=== PATIENT | female | born 1995 | race Caucasian/White ===

== ENCOUNTER 2021-01-15 10:11 | Emergency (ER) | payer BC, SELFPAY ==
--- NOTE | ~2021-01-15 | XR_ITS ---
EXAMINATION: RIGHT WRIST X-RAY CLINICAL INFORMATION: Pain. Question fracture. COMPARISON: None TECHNIQUE: 4 views of the right wrist FINDINGS: Bone alignment is normal. No fracture or dislocation is seen. The joint spaces are normal. Soft tissues are normal. XR/XR hand wrist RT IMPRESSION: Normal right wrist.
[2021-01-15 10:54] VITALS: BP 132/68; PULSE 68; RESP 18; TEMP 37.1; O2SAT 99; BMI 30.9
--- NOTE | 2021-01-15 11:28 | ED_ITS ---
HPI - General Adult General Chief complaint: Extremity Problem Stated complaint: r wrist pain Time Seen by Provider: 01/15/21 11:05 Source: patient Mode of arrival: ambulatory Limitations: no limitations History of Present Illness HPI narrative: Patient presents to ED for right wrist pain for 1 week. Patient denies any trauma to the wrist. Patient denies any swelling, redness, tingling, numbness, bluish black discoloration, fever, or chills. 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 Patient denies being on any control pills. Patient denies any recent long travel, recent surgery, or any history of blood clots. Related Data Previous Rx's Medication Instructions Recorded naproxen 500 mg tablet 500 mg PO BID PRN #20 tab 01/15/21 Allergies Allergy/AdvReac Type Severity Reaction Status Date / Time No Known Allergies Allergy Verified 01/15/21 10:56 Review of Systems Review of Systems: Yes all other systems are reviewed and are negative Constitutional: Constitutional: Reports as per HPI and Reports no additional constitutional complaints Eyes: Eyes: Reports as per HPI and Reports no additional eye complaints ENT: Reports system reviewed and no additional complaints, except as documented and Reports as per HPI Cardiovascular: Cardiovascular: Reports as per HPI and Reports no additional cardiovascular complaints Respiratory: Respiratory: Reports as per HPI and Reports no additional respiratory complaints Gastrointestinal: Gastrointestinal: Reports as per HPI and Reports no additional gastrointestinal complaints Genitourinary: Genitourinary: Reports no additional female genitourinary complaints and Reports as per HPI Musculoskeletal: Musculoskeletal: Reports no additional musculoskeletal complaints, Reports as per HPI and Reports arthralgias (right wrist pain) Neurologic: Reports system reviewed and no additional complaints, except as documented and Reports as per HPI Psychiatric: Psychiatric: Reports no additional psychiatric complaints and Reports as per HPI [facility] Past Medical History Medical History (Updated 01/15/21 @ 12:52 by ZANDRA Ruano) No known health problems Social History Social History Advance Directives: No Advance Directives Information Provided: No Patient : No Physical Exam Vital Signs: Vital Signs: Last Vital Signs Temp 98.7 F 01/15/21 10:54 Pulse 68 01/15/21 10:54 Resp 18 01/15/21 10:54 BP 132/68 01/15/21 10:54 Pulse Ox 99 01/15/21 10:54 Body Mass Index 30.9 Const: General: cooperative, healthy appearing, comfortable, no acute distress, well developed, alert, awake and Physically active Sean entation/consciousness: patient oriented x3 HENMT: Head: Yes normal to inspection, Yes No palpable skull fracture present, Yes normocephalic, Yes atraumatic and No abrasion Eyes: General: appearance normal, both eyes and all related structures Neck: Neck: Yes normal visual inspection, Yes full ROM, Yes no lymphadenopathy, Yes no meningeal signs, Yes trachea midline, Yes supple and No tender Chest: Chest palpation & inspection: normal inspection of the chest and normal palpation of entire chest wall Resp: Effort & Inspection: normal respiratory effort and able to speak in complete sentences Auscultation: clear to auscultation bilaterally Cardio: Jugular venous distension: no JVD Heart sounds: S1 normal heart sound present and S2 normal heart sound present GI: Inspection: Yes normal to inspection and Yes abdominal wall ecchymosis Palpation (GI): Soft to palpation, not firm, nontender, no guarding and not rigid : General: No CVA tenderness and Yes no CVA tenderness Back/Spine/Pelvis: Back: no CVA tenderness, No CVA tenderness and No back tenderness Skin: General skin exam: no rashes or lesions noted and elasticity normal Neuro: General: patient oriented x3, gait normal, no meningeal signs and CN's II-XI intact bilaterally Cranial nerves: Yes CN's II-XII intact bilaterally Extrem: General: Yes normal to inspection and Yes full ROM Hand/finger images: 1. Tenderness on palpation. Negative for any erythema, deformity, ecchymosis, hardness, swellling, coolness. Negative Phalen and Tinel sign. Capillary refills intact. Motor/neuro/vascular exam intact. Extremity negative for any swelling, red streaks, redness, or palpable mass. Psych: Appearance: grossly normal, well kempt and not disheveled Course Course Course Narrative: Patient will be sent for x-ray. Patient not any distress. Reevaluation(s) Reevaluation #1: X-ray came back negative for fractures. Patient to be discharged. Time: 12:49 Medical Decision Making [place] Narrative Medical decision making narrative: Wrist pain Discharge Plan Discharge Clinical Impression: Pain in wrist Patient Disposition: Home, Self-Care Instructions: Wrist Sprain (ED) Additional Instructions: Your x-ray came back negative for any fractures. If he have continuous pain will recommend follow-up with PCP for MRI. Return to the ED for any swelling, redness, bluish black discoloration, coolness, weakness, tingling, swelling, red streaks, chest pain, shortness of breath, or any other concerning symptoms. Prescriptions: New naproxen 500 mg tablet 500 mg PO BID PRN (Reason: pain) Qty: 20 RF: 0 Stand Alone Forms: Work/School Release Interventions: ED Discharge Assessment Last Done: 01/15/21 13:20 Discharge Date/Time: 01/15/21 13:21 Print Language: Thai
== END 2021-01-15 13:21 | disposition home or self-care (01) ==
PROVIDERS: Emergency Provider Emergency Medicine
DX: M25.531 Pain in right wrist (principal); Z79.899 Other long term (current) drug therapy
CPT/HCPCS: 73110; 73130; 99283

== ENCOUNTER 2021-03-16 12:15 | Outpatient (REF) | payer BC, SELFPAY | END 2021-03-16 12:16 | disposition home or self-care (01) | LOC: HO.LAB 12:15 | PROVIDERS: Visit Provider Internal Medicine | DX: Z20.822 Contact with and (suspected) exposure to COVID-19 (principal) | CPT/HCPCS: C9803; U0003; U0005 ==

== ENCOUNTER 2021-05-21 07:42 | Outpatient (REF) | payer BC, SELFPAY ==
[2021-05-21 08:20] LABS: Binax Internal Control QC Valid; Binax Now Covid-19 Ag Positive (Negative)
== END 2021-05-21 07:43 | disposition home or self-care (01) ==
LOC: HO.LAB 07:42
PROVIDERS: Visit Provider Internal Medicine
DX: Z20.822 Contact with and (suspected) exposure to COVID-19 (principal)
CPT/HCPCS: C9803

== ENCOUNTER 2021-08-17 11:30 | Outpatient (REF) | payer BC, SELFPAY ==
[2021-08-17 12:49] LABS: COVID-19 Test Negative (Negative)
== END 2021-08-17 11:31 | disposition home or self-care (01) ==
LOC: HO.LAB 11:30
PROVIDERS: Visit Provider Internal Medicine
DX: Z20.822 Contact with and (suspected) exposure to COVID-19 (principal)
CPT/HCPCS: 87635; C9803

== ENCOUNTER 2022-10-07 12:04 | Outpatient (REF) | payer BC, SELFPAY ==
--- NOTE | ~2022-10-07 | XR_ITS ---
EXAMINATION: XR FOOT, LEFT CLINICAL INFORMATION: Contusion COMPARISON: None available. TECHNIQUE: AP, lateral, and oblique views of the left foot. FINDINGS: No acute fracture or dislocation. Mild hallux valgus deformity at the first MTP joint. Joint spaces are otherwise normal. Soft tissues are normal. XR/XR foot LT min 3V IMPRESSION: No acute fracture or dislocation.
== END 2022-10-07 12:05 | disposition home or self-care (01) ==
LOC: HO.HMGCX 12:04
PROVIDERS: Visit Provider Internal Medicine
DX: S90.32XA Contusion of left foot, initial encounter (principal)
CPT/HCPCS: 73630

== ENCOUNTER 2024-05-10 10:52 | Emergency (ER) | payer MEDICAID, SELFPAY ==
[2024-05-10] VITALS (10 sets, daily range): BP systolic 105–132; BP diastolic 56–87; PULSE 65–106; RESP 12–18; TEMP 36.4–36.8; O2SAT 96–100; BMI 28.8
--- NOTE | 2024-05-10 10:55 | ECG_ITS ---
Test Reason : chest pain Blood Pressure : */* mmHG Vent. Rate : 88 BPM Atrial Rate : 88 BPM P-R Int : 144 ms QRS Dur : 80 ms QT Int : 358 ms P-R-T Axes : 53 54 -40 degrees QTcB Int : 433 ms Normal sinus rhythm with sinus arrhythmia ST & T wave abnormality, consider inferior ischemia ST & T wave abnormality, consider anterolateral ischemia Abnormal ECG No previous ECGs available Referred By: Generic ED Physician Electronically Signed By: SELINA BOO MD
--- NOTE | 2024-05-10 11:28 | ED.GENADULT ---
HPI - General Adult General Chief complaint: Arrhythmia/Palpitations Stated complaint: Fast heart rate near syncope Time Seen by Provider: 05/10/24 15:54 Source: patient Mode of arrival: ambulatory Limitations: no limitations History of Present Illness ED Provider: wade renae NP HPI narrative: Patient is a 28-year-old female with no reported past medical history who Endorses a syncopal episode on 04/21/2024 in the setting of consuming alcohol and smoking marijuana which are atypical for her. She reports that for the past 3 weeks she has been experiencing tachycardia with movement such as when she is walking, and she gets ?fuzziness in my head? but did not denies it to feel like dizziness or lightheadedness. Today she states that she was outdoors shoveling she was feeling significant tachycardia and palpitations. She went inside and she sat down on the couch for an hour. Reports that when she stood up from the couch to walk to the bathroom and had a near syncopal episode, by family's account she appeared very pale, she was able sit herself to the ground without head strike or loss consciousness. Reports this occurred around 10:00 this morning, she had previously in at 07:30 this morning. Since this event she has continued to only notice the tachycardia with movement but no further symptoms. Denies any issues with chest pain. Denies any OCP usage, lower extremity pain swelling, history of VTE/malignancy Related Data Home Medications ?Medication ?Instructions ?Recorded ?Confirmed No Known Home Meds 10/11/22 10/11/22 Allergies Allergy/AdvReac Type Severity Reaction Status Date / Time No Known Allergies Allergy Verified 05/10/24 11:31 Review of Systems Review of Systems: Yes all other systems are reviewed and are negative PMFSH Past Medical History Attestation statement: The following information was validated with the patient. Source: old records reviewed Medical History No known health problems Social History Social History Alcohol intake: current Alcohol intake frequency: holidays/special occasions only Patient Tobacco Use Status: Never used Tobacco Smoked in Last 30 Days: No Use of substances other than those prescribed or required for medical reasons: No Advance Directives: No Advance Directives Information Provided: Yes Do you have a plan to hurt others: No Plan Patient : No Physical Exam ED Vital Signs: Vital Signs - 24 hr 05/10/24 11:28 05/10/24 13:14 05/10/24 13:16 Temperature 98.2 F 97.5 F Pulse Rate 93 99 78 Respiratory Rate 18 18 Blood Pressure 116/77 130/74 130/74 Pulse Oximetry 100 100 Oxygen Delivery Method Room Air Room Air 05/10/24 13:18 05/10/24 13:18 05/10/24 15:36 Temperature 98.2 F Pulse Rate 75 106 H 90 Respiratory Rate 16 Blood Pressure 132/79 123/87 107/69 Pulse Oximetry 99 Oxygen Delivery Method Room Air 05/10/24 18:23 05/10/24 19:39 05/10/24 20:56 Temperature 98.1 F Pulse Rate 68 65 Respiratory Rate 12 14 Blood Pressure 106/63 105/62 108/63 Pulse Oximetry 100 96 Oxygen Delivery Method Room Air Room Air 05/10/24 20:56 05/10/24 20:56 Temperature Pulse Rate 78 72 Respiratory Rate Blood Pressure 116/70 111/71 Pulse Oximetry Oxygen Delivery Method BMI result Body Mass Index 28.8 Appearance: Alert.?Oriented to person, place and time. No acute distress.?Normal affect. Eyes: Pupils equal, round and reactive to light.? ENT: Pharynx normal.?? Neck: Normal inspection.? Neck supple.?? CVS: Heart sounds normal. Normal heart rate and rhythm.? Pulses normal.?? Respiratory: No respiratory distress.? Lung sounds clear to auscultation bilaterally?? Abdomen: Soft and non-tender. Normoactive bowel sounds. Skin: Skin warm and dry.? Normal skin color.? Extremities: No lower extremity edema.? No calf ttp? Neuro: Moves all extremities spontaneously. Sensation intact bilaterally. No focal neuro deficits. Ambulates with normal steady gait. Course Course Course Narrative: This is an RME: Additional HPI, ROS, PE not included below will be deferred to primary provider. RME assessment and note performed by: Alisia Rodgers PA-C This is a [id number]-female who presents to the ER with complaints of lightheadedness. Reports that she felt fast heart rate, palpitations, and near syncope around 10:00AM this morning. She was sitting on a chair and went to stand up and felt these symptoms. Reports that when she moves around she gets a high heart rate lately. No known medical problems. Plan: Labs, EKG, UA, Medications Administered Discontinued Medications Generic Name Dose Route Start Last Admin Trade Name Bong PRN Reason Stop Dose Admin Sodium Chloride 1,000 mls @ 999 mls/hr 05/10/24 18:00 05/10/24 18:02 Ns IV 05/10/24 19:00 999 mls/hr .Q1H1M IVETTE Administration Medical Decision Making Medical Decision Making [facility] Narrative: Patient is a 28-year-old female presents emergency department for evaluation after a near syncopal episode earlier today, as per HPI she was exerting herself while shoveling about 1 hour prior to the syncopal episode but she was resting for an hour. She has been having ongoing issues with positional tachycardic for the past 3 weeks by her account. Has not sought care prior to today. Has associated ?fuzziness? but denies overt dizziness/lightheadedness. No chest pain. No lower extremity pain or swelling. No history of VTE/malignancy or risk factors. She arrives without orthostatic hypotension, she does however have positional tachycardia with a rate from the 70s to 110s just with simply standing. Will obtain CBC to evaluate for leukocytosis/ anemia, CMP and lipase to evaluate for abnormal electrolytes /abnormal renal function/ abnormal hepatic/biliary function, EKG and troponin to evaluate for ischemia/ACS, D-dimer, hCG, Urinalysis. Differential Diagnosis Differential Diagnoses: The differential diagnosis associated with the presentation includes (See narrative above) Admission/Observation Consideration of admission/observation: Escalation of care including admission/observation considered (See narrative above and course narrative for further detail) Consult Healthcare Provider Management of the patient was discussed with: Steward[employer] (Cardiology Dr. Adame) Consulted with Cardiology, recommending IV fluid and reassessment of position tachycardia, she did have improvement with only minimal increase in tachycardia. However given her initial EKG and presyncope it is recommended that she follow up outpatient further evaluation. Lab Data [facility] Lab Attestation statement: I reviewed the patient's lab results. CBC is without leukocytosis anemia or thrombocytopenia. No electrolyte derangement. No SYLVIE. Random glucose of 122. LFTs within normal range. High sensitive troponin negative x2. TSH within normal range. HCG is negative. D-dimer <150 05/10/24 11:48 05/10/24 11:48 Labs: Lab Results 05/10/24 05/10/24 05/10/24 Range/Units 11:48 13:20 15:36 WBC 8.3 (4.8-10.8) X10*3/uL RBC 5.12 (4.20-5.50) X10*6/uL Hgb 14.8 (12.0-16.0) g/dl Hct 44.1 (37.0-47.0) % MCV 86.1 (80.0-98.0) fL MCH 28.9 (27.0-33.0) pg MCHC 33.6 (31.0-35.0) g/dl RDW 12.6 (11.0-16.0) % Plt Count 330 (160-400) X10*3/uL MPV 9.6 (9.4-12.3) fL Immature Gran % (Auto) 0.4 (0.0-0.4) % Neut % (Auto) 74.4 H (45-73) % Lymph % (Auto) 15.7 L (20-40) % [place] % (Auto) 8.8 (2-11) % Eos % (Auto) 0.2 (0-4) % Baso % (Auto) 0.5 (0-2) % Lymph # (Auto) 1.3 (1.2-4.9) X10*3/uL [place] # (Auto) 0.7 (0.1-1.2) X10*3/uL Eos # (Auto) 0.0 (0.0-0.4) X10*3/uL Baso # (Auto) 0.0 (0.0-0.2) X10*3/uL Abs Immat Gran (auto) 0.03 (0.00-0.03) X10*3/uL Absolute Neuts (auto) 6.2 (2.0-8.3) x10*3/uL Absolute Nucleated RBC 0.000 (0.0-0.012) X10*3/uL Nucleated RBC % (auto) 0.0 (0.0-0.2) /100WBC PT 12.9 H (10.9-12.4) SEC INR 1.1 (0.9-1.1) D-Dimer High Sensitivty < 150 NG/ML Sodium 141 (135-145) mmol/L Potassium 4.3 (3.3-5.1) mmol/L Chloride 105 (96-108) mmol/L Carbon Dioxide 26 (22-29) mmol/L Anion Gap 14 (12-20) BUN 11 (9-16) mg/dL Creatinine 0.78 (0.5-1.4) mg/dL Estim Creat Clear Calc 108.1 Estimated GFR > 60 Random Glucose 122 H (60-115) mg/dL Calcium 9.7 (8.4-10.2) mg/dL Magnesium 2.0 (1.6-2.6) mg/dL Total Bilirubin 0.4 (0.0-1.0) mg/dL Direct Bilirubin 0.1 (0.0-0.5) mg/dL AST 19 (5-31) U/L ALT 12 (0-31) U/L Alkaline Phosphatase 81 (39-117) U/L Troponin I High Sens < 2.7 < 2.7 (<3.5-17.0) ng/L Total Protein 8.4 H (6.5-8.0) g/dL Albumin 4.7 (3.5-5.0) g/dL TSH 1.13 (0.32-4.0) uIU/mL Beta HCG, Quant < 2 mIU/mL Urine Color Yellow Urine Appearance Clear Urine pH 7.5 (5.0-9.0) Ur Specific [place] 1.010 (1.005-1.025) Urine Protein Negative (Neg-Trace) mg/dL Urine Glucose (UA) Negative (Negative) mg/dL Urine Ketones Negative (Negative) mg/dL Urine Blood Large (3+) H (Negative) Urine Nitrite Negative (Negative) Ur Leukocyte Esterase Trace H (Negative) Urine RBC 6-10 H (0-2) /HPF Urine WBC 0-5 (0-5) /HPF Ur Squamous Epith Cells 6-10 (0-2) /HPF Urine Bacteria None Seen (None Seen) Hyaline Casts 0-2 (0-2) /LPF Independent Interpretation I performed an independent interpretation of an: EKG Interpretation: Initial EKG revealing normal sinus rhythm with ventricular rate of 88, QTC 433, T-wave inversion in inferior leads with perhaps slight ST depression in AVF in addition to T-wave inversion and slight ST depression in the anterolateral leads. appears notably improved on repeat ekg. Independent Historian Clinical information obtained from an independent historian. History obtained from or confirmed by: Parent External Record Review External record reviewed: Outpatient record Discharge Plan Discharge Clinical Impression: Near syncope Patient Disposition: Home, Self-Care Instructions: Near Syncope (ED) Additional Instructions: The change in your heart rate with position change/movement improved after receiving IV fluids. Your blood work was very reassuring. Cardiac enzymes; troponin, or negative which indicates no evidence of injury to the heart muscle. A screening test for a blood clot in the lung; your D-dimer was negative. It is recommended that you follow-up outpatient with Cardiology in regards to your palpitations and heart racing with position change. Please be sure that you are staying plenty hydrated, at least 8 glasses of 8-12 oz of fluid such as water daily. Change position slowly. Prescriptions: No Action No Known Home Meds Referrals: [facility] [Provider Group] Print Language: Polish
[2024-05-10 11:54] LABS: Basophils Percent Auto 0.5 % (0-2); Eosinophils Percent Auto 0.2 % (0-4); Hematocrit 44.1 % (37.0-47.0); Hemoglobin 14.8 g/dl (12.0-16.0); Imm Gran Abs Auto 0.03 X10*3/uL (0.00-0.03); Imm Gran Pct Auto 0.4 % (0.0-0.4); Lymphocytes Absolute Auto 1.3 X10*3/uL (1.2-4.9); Lymphocytes Percent Auto 15.7 % (20-40); MANUAL DIFF FLAG NO; Mean Corpuscular HGB Conc 33.6 g/dl (31.0-35.0); Mean Corpuscular Hemoglobin 28.9 pg (27.0-33.0); Mean Corpuscular Volume 86.1 fL (80.0-98.0); Mean Platelet Volume 9.6 fL (9.4-12.3); Monocytes Absolute Auto 0.7 X10*3/uL (0.1-1.2); Monocytes Percent Auto 8.8 % (2-11); Neutrophils Absolute Auto 6.2 x10*3/uL (2.0-8.3); Neutrophils Percent Auto 74.4 % (45-73); Platelet Count 330 X10*3/uL (160-400); Red Blood Count 5.12 X10*6/uL (4.20-5.50); Red Cell Distribution Width 12.6 % (11.0-16.0); White Blood Count 8.3 X10*3/uL (4.8-10.8)
[2024-05-10 12:02] LABS: INTERNATIONAL NORM RATIO 1.1 (0.9-1.1); Prothrombin Time 12.9 SEC (10.9-12.4)
[2024-05-10 12:17] LABS: Troponin-I High Sensitivity < 2.7 ng/L (<3.5-17.0)
[2024-05-10 12:18] LABS: Alanine Aminotransferase 12 U/L (0-31); Albumin Level 4.7 g/dL (3.5-5.0); Alkaline Phosphatase 81 U/L (39-117); Anion Gap 14 (12-20); Aspartate Amino Transferase 19 U/L (5-31); Bilirubin Direct 0.1 mg/dL (0.0-0.5); Bilirubin Total 0.4 mg/dL (0.0-1.0); Blood Urea Nitrogen 11 mg/dL (9-16); Calcium 9.7 mg/dL (8.4-10.2); Carbon Dioxide 26 mmol/L (22-29); Chloride 105 mmol/L (96-108); Creatinine Clr Calc Pharmacy 108.1; Estimated Glomerular Filt Rate > 60; Glucose Random 122 mg/dL (60-115); HCG Quantitative < 2 mIU/mL; Potassium 4.3 mmol/L (3.3-5.1); Sodium 141 mmol/L (135-145); Total Protein 8.4 g/dL (6.5-8.0)
[2024-05-10 12:29] LABS: TSH reflex Free T4 1.13 uIU/mL (0.32-4.0)
[2024-05-10 13:28] LABS: Appearance Urine Clear; Color Urine Yellow; Glucose Urine UA Negative (Negative); Leukocyte Esterase Urine Trace (Negative); Nitrite Urine Negative (Negative); PH 7.5 (5.0-9.0); UMIC TRIGGER UACC YES; Urine Blood Large (3+) (Negative); Urine Ketones Negative (Negative); Urine Protein Negative (Neg-Trace)
--- NOTE | 2024-05-10 13:30 | PC.NURSE ---
a&ox4. vss and up to date. 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 pt presents to the ED s/p witnessed near syncopal episode earlier this morning. pt reports syncopal episode on JESUS while drinking alcohol. -headstrike, +loc, -thinners. pt reports feeling dizzy and palptiations prior to episode and then immediately recalling event s/p event. pt reports intermittent palpitations since JESUS incident. has not been evaluated at PCP. per pt, pt states she was shoveling her grandmothers driveway earlier this morning where she then laid on the couch to take a break. pt reports she got up off of the couch and had sudden onset dizziness and palpitations. near syncopal event noted. orthostatic vitals performed and negative. HR slightly increased during position change. pt denies feeling dizzy/lightheaded during exertion. pt on RA w/o difficulty. no sob/wob noted. respirations even/unlabored. father bedside for support. plan of care ongoing. call mckeon placed within reach.
[2024-05-10 13:40] LABS: Bacteria Urine None Seen (None Seen); Hyaline Casts Urine 0-2 /LPF (0-2); WBC Urine 0-5 /HPF (0-5)
[2024-05-10 16:12] LABS: Troponin-I High Sensitivity < 2.7 ng/L (<3.5-17.0)
--- NOTE | 2024-05-10 16:46 | ECG_ITS ---
Test Reason : PAPITATIONS Blood Pressure : */* mmHG Vent. Rate : 66 BPM Atrial Rate : 66 BPM P-R Int : 158 ms QRS Dur : 86 ms QT Int : 394 ms P-R-T Axes : 43 41 25 degrees QTcB Int : 413 ms Normal sinus rhythm Nonspecific T wave abnormality Abnormal ECG When compared with ECG of 10-May-2024 11:02, T wave inversion no longer evident in Inferior leads Nonspecific T wave abnormality has replaced inverted T waves in Lateral leads Referred By: Siena Mock Electronically Signed By: SELINA BOO MD
--- NOTE | 2024-05-10 16:50 | PC.NURSE ---
repeat ekg performed by tech.
[2024-05-10 17:08] LABS: D Dimer High Sensitivity < 150 NG/ML
[2024-05-10] MEDS: 0.9 % Sodium Chloride 1,000 ML 999 ML IV (18:02)
--- NOTE | 2024-05-10 19:01 | PC.NURSE ---
18gIV placed in the right AC - IVF administered per provider order. pt remains on RA w/o difficulty. no sob/wob noted. respirations remain even/unlabored. plan of care ongoing. call mckeon placed within reach.
== END 2024-05-10 23:10 | disposition home or self-care (01) ==
PROVIDERS: Nurse Practitioner Family; Physician Assistant Medical; Emergency Provider Emergency Medicine Emergency Medical Services
DX: R55 Syncope and collapse (principal); R07.9 Chest pain, unspecified; R00.0 Tachycardia, unspecified
CPT/HCPCS: 36415; 80048; 80076; 81001; 83735; 84443; 84484; 84702; 85025; 85379; 85610; 93005; 99283; 99285

== ENCOUNTER → 2024-05-10 10:55 | Outpatient (BNV) | payer MEDICAID, SELFPAY | PROVIDERS: Visit Provider Internal Medicine Cardiovascular Disease | DX: R94.31 Abnormal electrocardiogram [ECG] [EKG] (principal) | CPT/HCPCS: 93010 ==

== ENCOUNTER 2024-05-20 08:05 | Outpatient (AMB) | payer MEDICAID, SELFPAY ==
[2024-05-20 08:12] VITALS: BP 102/70; PULSE 74; BMI 28.2
--- NOTE | 2024-05-20 08:12 | MHC.OFFVIS ---
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 Her EKG showed some nonspecific ST and T-wave abnormalities. Her TSH, troponins and D-dimer were normal. She was treated with IV fluids. She was referred to Cardiology in follow-up. Today she states that she has been very healthy until recently. She never had issues with heart palpitations or presyncope/syncope. She says on Gauri she had alcohol and smoked marijuana. She then had a brief fainting episode. She recalls waking up when she hit the floor then describes feeling nauseous. She was assisted onto the couch where she spent the night and in the morning she felt back to normal. She has been fearful of having recurrent syncope since that time. She does describe herself as anxious. She has been noticing heart palpitations where her heart is racing for no reason. These episodes will settle down if she can calm down and relax. She recently clean the snow off her grandmother's driveway which was not an unusual activity for her. Afterward she was sitting and resting then when she stood up she felt fuzzy in her head and her heart was beating fast. Her family stated she was white in color. She felt presyncopal but did not have any syncope. She was brought to the emergency room for evaluation. Since that time she has had episodes where she can feel her heart go fast but no recurrent presyncope. She tells me she drinks alcohol only occasionally. She does vape which helps her with stress reduction. 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 She says her paternal aunt had a three-vessel coronary artery bypass grafting. Parents and siblings have no heart issues. [facility] Medical History No known health problems Social History Alcohol intake: current Alcohol intake frequency: holidays/special occasions only Patient Tobacco Use Status: Never used Tobacco Review of Systems Const Details: anxiety All systems reviewed & are unremarkable except as noted in HPI and below ENT Denies dizziness Card Denies chest pain, Denies chest pain at rest, Denies chest pain with activity, Reports rapid heart rate, Denies pedal edema, Denies edema, Denies leg edema, Denies lightheadedness, Denies palpitations, Denies dyspnea, Denies dyspnea on exertion and Denies orthopnea Resp Denies cough, Denies dyspnea and Denies dyspnea on exertion GI Denies hematochezia and Denies change in stool character Musc Denies abnormal gait, Denies limited range of motion, Denies muscle cramps, Denies muscle weakness, Denies numbness, Denies radiating pain into limb, Denies stiffness and Denies tingling Neuro Denies abnormal gait, Denies dizziness, Denies numbness and Denies tingling Endo Denies palpitations Physical Exam Vital Signs: Last Vital Signs Pulse 74 05/20/24 08:12 BP 102/70 05/20/24 08:12 BMI result Body Mass Index 28.2 Const General: cooperative, healthy appearing, comfortable and no acute distress Orientation/consciousness: patient oriented x3 Neck Neck: Yes normal visual inspection and Yes no JVD Resp Effort & Inspection: normal respiratory effort Auscultation: clear to auscultation bilaterally, no crackles, no rales, no rhonchi and no wheezes Cardio Jugular venous distension: no JVD Rate: regular rate Rhythm: regular rhythm Heart sounds: S1 normal heart sound present, S2 normal heart sound present, no gallops, no murmurs and no rubs Neuro General: patient oriented x3 Extrem General: Yes normal to inspection, No no pedal edema and No calf tenderness Psych Appearance: grossly normal Mental Status: mental status grossly normal Speech and movement: Normal speech and movement present Assessment & Plan Assessment & Plan (1) Near syncope: Code(s): R55 - Syncope and collapse Category: Medical Plan: Reported episode of presyncope, preceded by standing then tachycardia and feeling lightheaded. She also describes a syncopal episode occurring a few weeks prior after having alcohol and marijuana. Since that time she has been fearful of having recurrent syncope and is noticing any heart palpitations. ER evaluation showed normal troponin, TSH, D-dimer. She was not orthostatic. Her EKG did have nonspecific ST and T-wave abnormalities noted. She did have normal NE, QRS and QTC intervals. She was treated with IV fluids. Her presyncope episode was most likely related to orthostatic hypotension following physical activity without hydrating well before hand. Her actual syncopal episode was either orthostatic or vasovagal in the setting of her alcohol and marijuana use. Recommend that she stay away from alcohol and marijuana. Maintain good hydration and drink Gatorade few times weekly. Continue physical activity as tolerated. Recognize symptoms and sit/lay down if she does feel presyncopal. Her EKG did have some nonspecific findings. For complete list will check a Holter monitor to assess for any arrhythmia. Will check an echocardiogram to assess for structural heart disease. Will check an exercise stress test to evaluate for exercise-induced arrhythmia, ischemia. Cardiology follow-up in 4-6 weeks, sooner if needed. (2) Palpitations: Code(s): R00.2 - Palpitations Category: Medical Plan: As above (3) Abnormal EKG: Code(s): R94.31 - Abnormal electrocardiogram [ECG] [EKG] Category: Medical Plan: As above Plan Time spent on chart review, documentation, interview assessment Orders: Orders CA echo transthoracic complete Today R00.2 - Palpitations, R94.31 - Abnormal electrocardiogram [ECG] [EKG] CA stress test Today R00.2 - Palpitations, R55 - Syncope and collapse, R94.31 - Abnormal electrocardiogram [ECG] [EKG] ECG 3 day holter monitor Today R00.2 - Palpitations, R55 - Syncope and collapse, R94.31 - Abnormal electrocardiogram [ECG] [EKG] Coding Level of Care Code New Pt Level 4 (54695) Complex EM visit Add On G2211 Diagnoses Near syncope R55 Palpitations R00.2 Abnormal EKG R94.31 Time Spent (min) 36
== END 2024-05-20 08:47 | disposition home or self-care (01) ==
PROVIDERS: Visit Provider Nurse Practitioner Family
DX: R55 Syncope and collapse (principal); R00.2 Palpitations; R94.31 Abnormal electrocardiogram [ECG] [EKG]
CPT/HCPCS: 99204

== ENCOUNTER → 2024-05-20 08:05 | Outpatient (BNVA) | payer MEDICAID, SELFPAY | PROVIDERS: Visit Provider Nurse Practitioner Family | DX: R55 Syncope and collapse (principal); R00.2 Palpitations; R94.31 Abnormal electrocardiogram [ECG] [EKG] | CPT/HCPCS: 99212 ==